=== PATIENT | male | born 1985 | race Two or more races ===

== ENCOUNTER 2019-09-28 13:58 | Emergency (ER) | payer BC ==
[~2019-09-28] VITALS: Ht 193 cm; Wt 154.2 kg
--- NOTE | 2019-09-28 14:12 | NUR ---
DR. NORMAN AT BEDSIDE FOR EVAL.
[2019-09-28 14:13] VITALS: BP 166/84
[2019-09-28] MEDS ORDERED: HYDROCORTISONE ACETATE 25 MG/SUPP.RECT SUPP.RECT RC ONE ×2 (14:22→14:30)
[2019-09-28] MEDS ORDERED: KETOROLAC TROMETHAMINE INJ 60 MG/2 ML VIAL IM ONE ×2 (14:23→14:30)
[2019-09-28] MEDS ORDERED: KETOROLAC TROMETHAMINE 10 MG TABLET PO ONE (14:30)
--- NOTE | 2019-09-28 14:38 | NUR ---
Patient discharged to home in stable condition. Written and verbal after care instructions given. Patient verbalizes understanding of instruction.
== END 2019-09-28 14:39 | disposition home or self-care (01) ==
LOC: ER 13:58
DX: K64.5 Perianal venous thrombosis (principal); E66.01 Morbid (severe) obesity due to excess calories; Z68.41 Body mass index [BMI] 40.0-44.9, adult
CPT/HCPCS: 96372; 99283; J1885